=== PATIENT | male | born 1995 | race Two or more races ===

== ENCOUNTER 2022-04-15 07:08 | Emergency (ER) | payer OTHER ==
[~2022-04-15] VITALS: Ht 175.3 cm; Wt 54.4 kg
== END 2022-04-15 13:29 | disposition home or self-care (01) ==
LOC: ER 07:08
DX: K29.70 Gastritis, unspecified, without bleeding (principal); R11.10 Vomiting, unspecified

== ENCOUNTER → 2022-10-25 | Emergency (ER) | payer OTHER | END | disposition left against medical advice (07) | LOC: ER 00:28 | DX: Z53.21 Procedure and treatment not carried out due to patient leaving prior to being seen by health care provider (principal) ==

== ENCOUNTER 2022-12-28 07:56 | Outpatient (CLI) | payer OTHER | END 2022-12-28 08:03 | disposition home or self-care (01) | LOC: RAD 07:56 | DX: M99.01 Segmental and somatic dysfunction of cervical region (principal); M99.02 Segmental and somatic dysfunction of thoracic region; M99.03 Segmental and somatic dysfunction of lumbar region ==

== ENCOUNTER 2024-05-07 01:42 | Outpatient (CLI) | payer OTHER | END 2024-05-07 02:00 | disposition home or self-care (01) | LOC: PPH VACUNA 01:42 | PROVIDERS: ATTEND Emergency Medicine Pediatric Emergency Medicine | DX: Z23 Encounter for immunization (principal) ==

== ENCOUNTER 2025-01-26 13:18 | Outpatient (CLI) | payer OTHER | END 2025-01-26 14:43 | disposition home or self-care (01) | LOC: LAB 13:18 | DX: A64 Unspecified sexually transmitted disease (principal); B19.9 Unspecified viral hepatitis without hepatic coma ==

== ENCOUNTER 2025-05-20 14:00 | Outpatient (CLI) | payer OTHER | END 2025-05-20 14:10 | disposition home or self-care (01) | LOC: PPH VACUNA 14:00 | PROVIDERS: ATTEND Emergency Medicine Pediatric Emergency Medicine | DX: Z23 Encounter for immunization (principal) ==

== ENCOUNTER 2025-07-16 15:50 | Outpatient (CLI) | payer OTHER ==
[2025-07-16 16:24] LABS: COVID-19 AG NEGATIVE (NEGATIVE)
== END 2025-07-16 16:32 | disposition home or self-care (01) ==
LOC: LAB 15:50
PROVIDERS: ATTEND Preventive Medicine Occupational Medicine
DX: J11.1 Influenza due to unidentified influenza virus with other respiratory manifestations (principal); Z20.828 Contact with and (suspected) exposure to other viral communicable diseases